=== PATIENT | female | born 1995 | race Asian ===

== ENCOUNTER 2017-01-19 21:18 | Emergency (ER) | payer MEDICAID ==
[~2017-01-19] VITALS: Ht 157.5 cm; Wt 48.5 kg
[2017-01-19 21:30] VITALS: Ht 157.5 cm; Wt 48.5 kg
[2017-01-20 02:35] LABS: ADD SCAN DIFF NO
[2017-01-20 02:37] LABS: BASOPHILS % 0.2 % (0.0-2.0); EOSINOPHILS # 0.3 10^3/ul (0.0-0.5); EOSINOPHILS % 2.1 % (0.0-7.0); HEMATOCRIT 33.6 % (37.0-47.0); HEMOGLOBIN 11.9 g/dl (12.0-16.0); LYMPHOCYTES # 2.8 10^3/ul (0.8-2.9); LYMPHOCYTES % 20.5 % (15.0-51.0); MEAN CORPUSCULAR HEMOGLOBIN 31.8 pg (29.0-33.0); MEAN CORPUSCULAR HGB CONC 35.4 g/dl (32.0-37.0); MEAN CORPUSCULAR VOLUME 89.8 fl (82.0-101.0); MEAN PLATELET VOLUME 8.6 fl (7.4-10.4); MONOCYTE # 0.7 10^3/ul (0.3-0.9); MONOCYTES % 5.5 % (0.0-11.0); NEUTROPHIL # 9.7 10^3/ul (1.6-7.5); NEUTROPHILS % 71.5 % (39.0-77.0); PLATELET COUNT 269 10^3/UL (140-415); RED BLOOD COUNT 3.74 10^6/ul (4.20-5.40); RED CELL DISTRIBUTION WIDTH 11.7 % (11.5-14.5); WHITE BLOOD COUNT 13.5 10^3/ul (4.8-10.8)
[2017-01-20 02:38] LABS: ADD UMIC YES; URINE BILIRUBIN (Dip) NEGATIVE (NEGATIVE); URINE BLOOD (Dip) NEGATIVE (NEGATIVE); URINE COLOR LT. YELLOW (YELLOW); URINE GLUCOSE (Dip) NEGATIVE (NEGATIVE); URINE KETONES (Dip) TRACE (NEGATIVE); URINE LEUKOCYTE ESTERASE (Dip) 1+ (NEGATIVE); URINE NITRITE (Dip) NEGATIVE (NEGATIVE); URINE TOTAL PROTEIN (Dip) NEGATIVE (NEGATIVE); URINE UROBILINOGEN (Dip) 0.2 E.U./dL (0.1-1.0)
[2017-01-20 02:47] LABS: POTASSIUM 3.5 mmol/L (3.5-5.1)
[2017-01-20 02:49] LABS: CREATININE 0.48 mg/dl (0.44-1.00)
[2017-01-20 02:51] LABS: URINE RBCS 0-2 /HPF (0)
[2017-01-20 02:52] LABS: BACTERIA,URINE FEW; SQUAMOUS EPITHELIAL CELL,UR FEW
--- NOTE | 2017-01-20 04:24 | ERD ---
ER Documentation Chief Complaint Date/Time DATE: 01/20/17 TIME: 04:17 Chief Complaint pelvic pain X20 minutes HPI 21-year-old 13 week female presents to ED with chief complaint of intermittent pelvic pain 4 hours. Pain radiates to her lower back and epigastric area. She denies nausea, vomiting, diarrhea, vaginal bleeding, vaginal discharge, and fever. She has had no problems with her . She denies history of abdominal surgeries. Currently rates her pain an 8 out of 10 in severity. She does not wish to have pain medication at this time. ROS All systems reviewed and are negative except as per history of present illness. Medications Home Meds Active Scripts Acetaminophen* (Tylenol*) 325 Mg Tablet, 2 TAB PO Q6 Y for PAIN AND OR ELEVATED TEMP, #20 TAB Prov:Kalli Pro PA-C 01/20/17 Nitrofurantoin Monohyd Macrocr* (Macrobid*) 100 Mg Capsr, 100 MG PO BID for 5 Days, #10 CAP Prov:Kalli Pro PA-C 01/20/17 Allergies Allergies: Coded Allergies: No Known Allergy (Unverified , 01/19/17) PMhx/Soc Medical and Surgical Hx: pt denies Medical Hx, pt denies Surgical Hx Hx Alcohol Use: Yes Hx Substance Use: Yes (COCAINE, MARIJUANA) Hx Tobacco Use: Yes Smoking Status: Former smoker Physical Exam Vitals Vital Signs Date Time Temp Pulse Resp B/P Pulse Ox O2 Delivery O2 Flow Rate FiO2 01/19/17 21:30 98.2 99 18 122/66 99 Physical Exam Const: [] Head: Atraumatic Eyes: Normal Conjunctiva ENT: Normal External Ears, Nose and Mouth. Neck: Full range of motion..~ No meningismus. Resp: Clear to auscultation bilaterally Cardio: Regular rate and rhythm, no murmurs Abd: Soft, non tender, non distended. Normal bowel sounds Skin: No petechiae or rashes Back: No midline or flank tenderness Ext: No cyanosis, or edema Neur: Awake and alert Psych: Normal Mood and Affect Result Diagram: 01/20/1721701/20/17217 Results 24 hrs Laboratory Tests Test 01/20/17 02:14 01/20/17 02:18 Urine Bacteria FEW Urine Bilirubin NEGATIVE Urine Clarity CLEAR Urine Color LT. YELLOW Urine Glucose NEGATIVE% Urine Hemoglobin NEGATIVE Urine Ketones TRACE Urine Leukocyte Esterase 1+ Urine Microscopic RBC 0-2/HPF Urine Microscopic WBC 2-5/HPF Urine Nitrite NEGATIVE Urine Specific [place] 1.020 Urine Squamous Epithelial Cells FEW Urine Total Protein NEGATIVE Urine Urobilinogen 0.2 E.U./dL Urine pH 6.0 Anion Gap 16 Basophils # 0.010^3/ul Basophils % 0.2% Beta HCG, Quantitative 738759.0mIU/ml Blood Urea Nitrogen 6mg/dl Calcium Level 9.0mg/dl Carbon Dioxide Level 23mmol/L Chloride Level 104mmol/L Creatinine 0.48mg/dl Eosinophils # 0.310^3/ul Eosinophils % 2.1% Glucose Level 82mg/dl Hematocrit 33.6% Hemoglobin 11.9g/dl Lipase 154U/L Lymphocytes # 2.810^3/ul Lymphocytes % 20.5% Mean Corpuscular Hemoglobin 31.8pg Mean Corpuscular Hemoglobin Concent 35.4g/dl Mean Corpuscular Volume 89.8fl Mean Platelet Volume 8.6fl Monocytes # 0.710^3/ul Monocytes % 5.5% Neutrophils # 9.710^3/ul Neutrophils % 71.5% Nucleated Red Blood Cells # 0.010^3/ul Nucleated Red Blood Cells % 0.0/100WBC Platelet Count 35112^3/UL Potassium Level 3.5mmol/L Red Blood Count 3.7410^6/ul Red Cell Distribution Width 11.7% Sodium Level 139mmol/L White Blood Count 13.510^3/ul Procedures/MDM Patient presented with suprapubic pain initially, however states that the pain intermittently radiates into her epigastric area as well. She has diffuse abdominal tenderness on exam. Negative Awad sign. No tenderness over McBurney's point or rebound tenderness. I explained that we would order basic lab work along with beta hCG and a pelvic ultrasound. Awaiting results prior to further management CBC: Mild leukocytosis of 13.5, likely due to UTI or stress reaction. BMP: No severe electrolyte imbalances or signs of dehydration, normal kidney function UA: 1+ leukocyte Estrace, no nitrites, will treat for UTI. Beta HCG: within appropriate range for dates US: IMPRESSION: Single viable intrauterine gestation of approximately 14 weeks 3 days. The estimated date of delivery is July 18, 2017. Patient's ultrasound shows no problems with the intrauterine gestation. I explained the patient that the majority of her labs were within normal limits, however due to mild leukocytosis and 1+ leukocyte Estrace and the urine I will be treating her for UTI. She has diffuse tenderness to the abdomen which is intermittent, symptoms may likely be due to gas or constipation. 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 Pelvic pain may also be due to changes. I have given patient instructions on possible causes of pelvic pain during second trimester. I have explained to the patient strict return precautions. Currently she is afebrile with stable vital signs. No further workup is necessary at this time. I have low suspicion for ectopic , pyelonephritis, appendicitis, cholecystitis, pancreatitis, bowel obstruction, PID, and sepsis. Patient is stable for discharge and outpatient management. Advised to follow- up with PCP or [facility] in 1-2 days. Departure Diagnosis: Primary Impression: Pelvic pain in Kalli Pro PA-C Jan 20, 2017 04:23
--- NOTE | 2017-01-20 04:37 | RADRPT ---
PROCEDURE: ULTRASOUND OBSTETRICAL CLINICAL INDICATION: 21-year-old female with pelvic pain. TECHNIQUE: Multiple sonographic images of the pelvis were obtained. The images were reviewed on a PACS workstation. COMPARISON: No prior studies are available for comparison. FINDINGS: The cervix is not well visualized. There is a single viable intrauterine gestation. Cardiac activit y is present with 157 beats per minute. There is a variable presentation. Measurements were made in order to determine age. The results are as follows: BPD = 2.50 cm, HC = 9.58 cm, AC = 8.25 cm, FL = 1.41 cm. This yields and estimated gestational age of approximately 14 weeks 3 days. The estimated date of delivery is July 18, 2017. The EFW = 96 +/- 15 g. The GP is 12%. The placenta is posterior. There is no evidence for an abruption or placenta previa. There is an adequate amount of amniotic fluid with the maximal vertical pocket measuring 4.1 cm. IMPRESSION: Single viable intrauterine gestation of approximately 14 weeks 3 days. The estimated date of delive ry is July 18, 2017. .Sen Sargent MD, Date Time Electronically viewed and signed by .Sen Sargent MD, on 01/20/2017 04:37 .M/
[2017-01-20] MEDS ORDERED: NITR-58 PO (04:44)
[2017-01-20] MEDS ORDERED: ACET325T33 PO (04:44)
[2017-01-20 04:57] VITALS: BP 125/60; PULSE 94; RESP 18; TEMP 98.2
== END 2017-01-20 04:57 | disposition home or self-care (01) ==
LOC: FTE 21:18
DX: O26.892 Other specified pregnancy related conditions, second trimester (principal); R10.2 Pelvic and perineal pain; Z87.891 Personal history of nicotine dependence
CPT/HCPCS: 36415; 76805; 80048; 81001; 81003; 83690; 84702; 85025; Z7502